=== PATIENT | male | born 1935 | race Caucasian/White ===

== ENCOUNTER 2017-02-13 19:04 | Emergency (ER) | payer OTHER ==
[~2017-02-13 19:04] MED LIST: ADRENALINE CHL INJ (ABBOJECT) ONE
[2017-02-13] MEDS ORDERED: ADRENALINE CHL INJ IVP ONE (19:10)
[2017-02-13] MEDS: ADRENALINE CHL INJ IVP PRN ×11 (19:10→19:42)
[2017-02-13] MEDS ORDERED: ADRENALINE CHL INJ IM ONE ×8 (19:13→19:42)
[2017-02-13] MEDS ORDERED: NEXTERONE IV 360 MG PREMIX* 200 ML IV ONE (19:33)
[2017-02-13] MEDS ORDERED: CORDARONE INJ 150 MG VIAL IVP ONE (19:40)
[2017-02-13 20:13] LABS: ABG ALLEN TEST POS; ABG HCO3 8.7 mmol/L (22-26)
--- NOTE | 2017-02-13 20:32 | DR.CA ---
HPI - Time Seen Time seen: 19:05 - HPI Comment HPI Comment: PATIENT WENT INTO CARDIAC ARREST IN ED AND ACLS PROTOCOL STARTED. HE WAS COMPLAING OF ABDOMINAL PAIN AT THE LONGTERM. TONIGHT STARTED HAVING RESPIRATORY DISTRESS. - Complaint Chief Complaint Doctor Comments: AMS, SOB. - Reviewed Nurses Notes Review: Yes - Source History Provided: Halfway - Mode of arrival Mode of Arrival: Stretcher - Context Onset: Witnessed History R/T Cardiac Arrest: Unknown - Associated Signs and Symptoms Associated Signs and Symptoms: Abdominal Pain, Dyspnea, Other ROS - Review of Systems Constitutional: Diaphoresis, Other (COLD EXTREMITIES) Eyes: Other (PUPILS DILATED AND FIX) ENTM: negative: Mouth Swelling (PATIENT UNRESPONSIVE.) Respiratoy: Short of Breath, Wheezing, Other (UNRESPONSIVE) Cardiovascular: Edema, Other (UNRESPONSIVE) Gastrointestinal/Abdominal: Other (UNRESPONSIVE). negative: Vomiting Genitourinary: Other (UNRESPONSIVE) Neurological: Other (UNRESPONSIVE) Musculoskeletal: Other (UNRESPONSIVE) Integumentary: Change in Color Hematologic/Lymphatic: Other (UNRESPONSIVE) Endocrine: Other (UNRESPONSIVE) Unable to Obtain Due To: Altered mental status PE - General Limitations: Altered Mental Status (UNRESPONSIVE), Other (ACUTE RESP DISTRESS) General Appearance: In Distress - Head Head Exam: Atraumatic - Eyes Eye exam: Other (PUPILS DILATED AND FIX.) Eyes: Pupils: Fixed, Dilated - ENT ENT Exam: Normal External Ear Exam, Other (ABSENT GAG) - Airway Airway: Intubated ET tube placement confirmed by: ETCO2 Gag: Absent - Neck Neck Exam: Trachea Midline - Chest Chest Inspection: Other (GASPING) Expanded Chest Exam: Other (NONE) - Respiratory Ventilation: Assisted Respiratory Exam: Accessory Muscle Use, Respiratory Distress Respiratory Exam: Bilateral Wheezing, Bilateral Rhonchi, Bilateral Decreased Breath Sounds, Upper Wheezing, Upper Rhonchi, Upper Decreased Breath Sounds, Lower Wheezing, Lower Rhonchi, Lower Decreased Breath Sounds - Cardiovascular Cardiovascular Exam: Tachycardia, Other (WEAK PULSES PROGRESSING TO ABSCENT PULSES) - Abdominal Exam Abdominal Exam: Soft - Extremities Extremities Exam: Edema - Neurologic Neurological Exam: Other (UNRESPONSIVE) - Skin Skin Exam: Erythema - Diagnosis Discharge Problem: Cardiopulmonary arrest - Discharge Plan Disposition: 20 Condition: Stable - Follow ups/Referrals Follow ups/Referrals: Koby Barrow [Primary Care Provider] - 3 days - Instructions MDM - Differential Diagnosis Differential Diagnosis: Cardiopulmonary Arrest Course - Treatment Treatment: PATIENT RESUSCITATED ACCORDING TO ACLS PROTOCOL. FAMILY IN ED. DISCUSS. AFLER TERMINATION OF RESUSCITATION, SEE CODE NOTE, RELATIVES WERE INFORM. ROR - Labs Reviewed Laboratory: Sample Site L rad 02/13/17 19:04 ABG pH 7.270 (7.35-7.45) L 02/13/17 19:04 ABG pCO2 19.0 mmHg (35.0-45.0) L* 02/13/17 19:04 ABG pO2 71.0 mmHg (80.0-100.0) L 02/13/17 19:04 ABG HCO3 8.7 mmol/L (22-26) L* 02/13/17 19:04 ABG O2 Saturation 91.0 % (90-100) 02/13/17 19:04 ABG Base Excess -16.0 mmol/L (-2.0-2.0) L 02/13/17 19:04 [place] Test Pos 02/13/17 19:04 A-a Gradient 618.0 mmHg 02/13/17 19:04 FiO2 100.000 02/13/17 19:04 Blood Gas Comments Eric well, mm 02/13/17 19:04 - EKG Rhythm: ST (EKG NOTED)
[2017-02-14 18:23] VITALS: BMI 30.5
[2017-02-14 19:17] VITALS: BP 80/40
== END 2017-02-13 22:15 | disposition expired ==
LOC: ER 19:04
PROC: 0D9670Z Drainage of Stomach with Drainage Device, Via Natural or Artificial Opening (ICD-10-PCS; principal; 2017-02-13)
DX: I46.9 Cardiac arrest, cause unspecified (principal)
CPT/HCPCS: 31500; 36600; 82803; 93005; 93010; 96374; 96375; 99285; J0170